=== PATIENT | female | born 1935 | race Caucasian/White ===

== ENCOUNTER 2020-11-29 00:56 | Emergency (ER) | payer MEDICARE, OTHER ==
[2020-11-29 03:46] LABS: HEMOGLOBIN 12.1 gm/dl (12.3-15.3); RED BLOOD COUNT 3.49 M/UL (4.00-5.10); WHITE BLOOD COUNT 4.6 K/UL (4.5-11.0)
[2020-11-29] MEDS ORDERED: AUGMENTIN 875-1 EACH PO (06:44)
== END 2020-11-29 07:16 | disposition home or self-care (01) ==
LOC: ER1 00:56
PROVIDERS: Student in an Organized Health Care Education/Training Program
DX: R04.0 Epistaxis (principal); I48.91 Unspecified atrial fibrillation
CPT/HCPCS: 30901; 85025; 99283; C9046

== ENCOUNTER 2020-12-02 10:48 | Emergency (ER) | payer MEDICARE, OTHER ==
[~2020-12-02 10:48] MED LIST: AUGMENTIN 875-1 EACH PO
[2020-12-02] MEDS ORDERED: AFRIN15 M1 (13:23)
== END 2020-12-02 13:49 | disposition home or self-care (01) ==
LOC: ER1 10:48
DX: S00.35XA Superficial foreign body of nose, initial encounter (principal); W45.8XXA Other foreign body or object entering through skin, initial encounter
CPT/HCPCS: 99283

== ENCOUNTER 2021-03-10 16:10 | Inpatient (IN) | payer MEDICARE, OTHER ==
[~2021-03-10] VITALS: Ht 162.6 cm; Wt 55.8 kg
[~2021-03-10 16:10] MED LIST changes: +AFRIN15 M1
[2021-03-10 18:40] LABS: HEMOGLOBIN 7.7 gm/dl (12.3-15.3); RED BLOOD COUNT 2.33 M/UL (4.00-5.10); WHITE BLOOD COUNT 4.5 K/UL (4.5-11.0)
[2021-03-10 19:06] LABS: BUN/CREATININE RATIO 48 (0-10)
--- NOTE | 2021-03-10 23:58 | NUR ---
CALLED DR. MURO TO CLARIFY THE ORDER TO TRANSFUSE [facility]. ORDER SAID TO TRANSFUSE BUT DID NOT CLARIFY HOW MANY UNITS. DR MURO ADVISED TO GIVE 1 UNIT OF THEN DO RECHECK IN AM.
[2021-03-11] MEDS ORDERED: ATORVASTATIN CA10 MG PO (01:04)
[2021-03-11] MEDS ORDERED: METOPROLOL SUCC50 MG PO (01:05)
[2021-03-11] MEDS ORDERED: VALSARTAN40 MG PO (01:07)
[2021-03-11] MEDS ORDERED: INSULIN LI100 UNIT/2 SQ (01:09)
[2021-03-11] MEDS ORDERED: XARELTO20 MG PO (01:10)
[2021-03-11] MEDS ORDERED: TOUJEO MAX300 UNIT/1 SQ (01:11)
[2021-03-11] MEDS ORDERED: CHILDREN'S ASPI81 MG PO (01:16)
--- NOTE | 2021-03-11 02:25 | NUR ---
NOTIFIED DR MURO ABOUT PATIENT'S MEDICATION RECONCILIATION. ADVISED ALSO THAT PATIENT IS DIABETIC AND BS WAS [address] MURO ORDER MEDIUM DOSE SLIDING SCALE. NOTIFIED PHARMACY.
[2021-03-11 04:03] LABS: HEMOGLOBIN 8.7 gm/dl (12.3-15.3); WHITE BLOOD COUNT 3.9 K/UL (4.5-11.0)
[2021-03-11 04:05] LABS: RED BLOOD COUNT 2.65 M/UL (4.00-5.10)
[2021-03-11 04:24] LABS: BUN/CREATININE RATIO 44 (0-10)
[2021-03-11 11:23] LABS: HEMOGLOBIN 8.8 gm/dl (12.3-15.3)
[2021-03-11] MEDS ORDERED: HUMALOG 10100 UNITS/ SC (15:23)
[2021-03-11] MEDS ORDERED: LANTUS INS100 UTS/M1 SQ (15:23)
--- NOTE | 2021-03-11 16:42 | NUR ---
REPORT CALLED TO [facility] AT THIS TIME. SPOKE WITH LILIA SIDHU.
--- NOTE | 2021-03-11 19:22 | NUR ---
EMS LEFT WITH PATIENT AT 1925 FOR [facility] 3RD FLOOR ROOM 323, ACCEPTING PHYSICIAN JENNIFER VALDES. VS WNL, IV LEFT INTACT. PATIENT LEFT FLOOR BY STRETCHER IN STABLE CONDITION.
== END 2021-03-11 19:24 | disposition short-term general hospital (02) | DRG 378 ==
LOC: ER1 16:10 → M/S 21:31 → CDU 21:31 → M/S 22:52
PROVIDERS: Emergency Medicine; Internal Medicine; ADMIT Internal Medicine
PROC: 30233N1 Transfusion of Nonautologous Red Blood Cells into Peripheral Vein, Percutaneous Approach (ICD-10-PCS; principal; 2021-03-10)
DX: K92.2 Gastrointestinal hemorrhage, unspecified (principal); D62 Acute posthemorrhagic anemia; E87.1 Hypo-osmolality and hyponatremia; Z20.822 Contact with and (suspected) exposure to COVID-19; E11.9 Type 2 diabetes mellitus without complications; I10 Essential (primary) hypertension; E87.5 Hyperkalemia; I48.91 Unspecified atrial fibrillation; Z79.01 Long term (current) use of anticoagulants; Z79.4 Long term (current) use of insulin
CPT/HCPCS: 36415; 36430; 71045; 80048; 80053; 82272; 82550; 82553; 82962; 83735; 83874; 84484; 85014; 85018; 85025; 85027; 85610; 85730; 86850; 86900; 86901; 86920; 93005; 96374; 99284; C9113; J7030; J7050; P9016; Q9967; U0002

== ENCOUNTER 2021-07-22 11:28 | Emergency (ER) | payer MEDICARE, OTHER ==
[~2021-07-22 11:28] MED LIST changes: +ATORVASTATIN CA10 MG PO; +CHILDREN'S ASPI81 MG PO; +HUMALOG 10100 UNITS/ SC; +INSULIN LI100 UNIT/2 SQ; +LANTUS INS100 UTS/M1 SQ; +METOPROLOL SUCC50 MG PO; +TOUJEO MAX300 UNIT/1 SQ; +VALSARTAN40 MG PO; +XARELTO20 MG PO
== END 2021-07-22 14:00 | disposition home or self-care (01) ==
LOC: ER1 11:28
DX: R04.0 Epistaxis (principal); Z95.0 Presence of cardiac pacemaker
CPT/HCPCS: 99283

== ENCOUNTER → 2021-11-23 | Outpatient (CLI) | payer MEDICARE, OTHER | LOC: US 14:15 | DX: N64.4 Mastodynia (principal) | CPT/HCPCS: 76641-LT ==